=== PATIENT | female | born 1955 | race Asian ===

== ENCOUNTER → 2016-10-24 | Outpatient (CLI) | payer BC ==
[~2016-10-24] MED LIST: ASPIRIN PO; BARACLUDE0.5 MG PO; CALCIUM 500 +1 EAC2 PO; CERTAGEN PO; COREG PO; COZAAR100 MG PO; FISH OIL 1,0001 EAC4; FLAX SEED OIL1000 MG PO; LEVOXYL PO; LISINOPRIL PO; LOSARTAN POTASS50 MG PO; OYSTER CALCIUM500 MG PO; PANTOPRAZOLE SO40 MG PO; PATIENT'S PHARMACY; SYNTHROID PO; VITAMIN D310000 UNIT PO; ZANTAC150 MG PO
--- NOTE | ~2016-10-24 | MR2 ---
[facility] A Service of [facility] RADIOLOGY TEXT RESULTS PATIENT: RACH MATSON LOCATION: [facility] : 53 UNIT #: [id number] AGE: [address]: Rolando Villarreal MD SEX: F ORDER DR: [id number] [place], [place] [address] [id number] O MR#: [id number] Acc #: [id number] NAME: RACH MATSON. : 1955 SEX: F STUDY DATE/TIME: 10/24/2016 9:33 UNIT: [facility] ROOM: STUDY DESCRIPTION: MR Abdomen WWo Cont Attending Physician: Rolando Villarreal M.D. Referring Physician: Rolando Villarreal M.D. Ordering Physician: Rolando Villarreal M.D. Primary Care Physician: Karen Sauceda M.D. MRI CENTER REPORT This report is preliminary unless electronic signature is present. EXAM MRI abdomen with and without contrast MRCP protocol INDICATION Follow up pancreatic cyst. PROCEDURE Multiplanar, multisequence MR imaging of the abdomen prior to and following 11 mL of MultiHance. COMPARISON 10/14/2015. FINDINGS ABDOMEN WITHOUT CONTRAST: Liver has normal morphology. The spleen, adrenal glands, gallbladder and bowel loops have normal signal. 2.2 cm simple cyst posterior upper pole right kidney. Common duct measures 8 mm. This is stable from the previous study. Pancreatic duct nondilated. There is a 7 mm cyst in the pancreatic neck body junction. It is unchanged from the previous study. Pancreas otherwise has normal signal. ABDOMEN WITH CONTRAST: The pancreatic cyst is difficult to see on many of the sequences. It is seen on the 10-minute delays and shows no appreciable internal enhancement. No enhancing pancreatic mass is seen. There are a few small cysts scattered throughout the liver. No abnormal enhancement is seen elsewhere in the abdomen. IMPRESSION [facility] A Service of [facility] RADIOLOGY TEXT RESULTS PATIENT: RACH MATSON LOCATION: [facility] : 53 UNIT #: [id number] AGE: [address]: Rolando Villarreal MD SEX: F ORDER DR: 1. 7 mm cyst in the pancreatic neck body junction is unchanged since 10/14/2015. It is considered a benign finding. No enhancing pancreatic mass. 2. Minimal prominence of the common duct is stable. There is no evidence for choledocholithiasis or an obstructing mass. Dictated by... Venu Velazquez M.D. THIS IS AN ELECTRONICALLY VERIFIED REPORT Venu Velazquez M.D. at 10/26/2016 7:53 AM JOEL/sai TD: 10/25/2016 12:03 JOB #: [id number] MRI CENTER REPORT COPY
[2016-10-24 08:38] LABS: BASOPHIL# 0.1 X10e3 (0-0.3); BASOPHIL% 1.8 % (0-2.5); EOSINOPHIL# 0.1 X10e3 (0-0.7); EOSINOPHIL% 2.9 % (0.0-7.0); HEMATOCRIT 39.5 % (35.0-45.0); HEMOGLOBIN 13.2 gm/dL (12.0-16.0); LYMPHOCYTE# 1.4 X10e3 (1.0-3.5); LYMPHOCYTE% 47.2 % (17.0-45.0); MEAN CELL VOLUME 90.1 FL (83-96); MEAN CORPUSCULAR HEMOGLOBIN 30.1 PG (28-34); MEAN CORPUSCULAR HGB CONC 33.4 g/dL (30-36); MEAN PLATELET VOLUME 8.8 FL (6.5-11.5); MONOCYTE# 0.3 X10e3 (0-1.0); MONOCYTE% 8.5 % (3.0-12.0); NEUTROPHIL# 1.2 X10e3 (1.5-7.1); NEUTROPHIL% 39.6 % (40-75); PLATELET COUNT 136 X10e3 (140-420); RED BLOOD COUNT 4.38 X10e (3.90-5.30); RED CELL DISTRIBUTION WIDTH 13.3 % (11.0-15.5)
[2016-10-24 08:43] LABS: DIFF IND NO
[2016-10-24 09:06] LABS: ALBUMIN SERUM 4.4 g/dL (3.5-5.0); ALKALINE PHOSPHATASE 62 U/L (32-92); ALT (SGPT) 14 U/L (10-40); AST (SGOT) 20 U/L (10-42); BILIRUBIN,TOTAL 0.9 mg/dL (0.2-2.0); BLOOD UREA NITROGEN 17 mg/dL (9-23); BUN/CREATININE RATIO 24.28; CALCIUM SERUM 8.8 mg/dL (8.4-10.2); CARBON DIOXIDE 29 mmol/L (22-31); CHLORIDE 98 mmol/L (100-111); CREATININE SERUM 0.7 mg/dL (0.6-1.4); GLOM FILT RATE Estimated ABOVE60 mL/min (>60); GLUCOSE FASTING 116 mg/dL (70-110); POTASSIUM 3.8 mmol/L (3.5-5.1); PROTEIN TOTAL SERUM 7.3 g/dL (6.0-8.3); SODIUM 135 mmol/L (135-145)
== END | disposition home or self-care (01) ==
LOC: CMRI 08:04
PROVIDERS: Internal Medicine
DX: K86.2 Cyst of pancreas (principal)
CPT/HCPCS: 74183; 80053; 85025; 87522; A9577

== ENCOUNTER → 2016-10-24 | Outpatient (CLI) | payer BC ==
[2016-10-24 09:34] LABS: CHOLESTEROL 211 mg/dL (0-200); HDL CHOLESTEROL 76 mg/dL (35-95); LDL CHOLESTEROL 120 mg/dL (-130); LDL/HDL RATIO 2 RATIO (0-4); TRIGLYCERIDES 74 mg/dL (10-160)
== END | disposition home or self-care (01) ==
LOC: CLAB 08:13
PROVIDERS: Family Medicine
DX: E78.5 Hyperlipidemia, unspecified (principal)
CPT/HCPCS: 36415; 80061

== ENCOUNTER → 2016-11-21 | Outpatient (CLI) | payer BC ==
--- NOTE | ~2016-11-21 | MY11 ---
[facility] A Service of [facility] RADIOLOGY TEXT RESULTS PATIENT: RACH MATSON LOCATION: [facility] : 53 UNIT #: [id number] AGE: [address]: Karen Sauceda MD SEX: F ORDER DR: [id number] [facility] [address] [place], [place] [address] [id number] O MR#: [id number] Acc #: [id number] NAME: RACH MATSON. : 1955 SEX: F STUDY DATE/TIME: 11/21/2016 10:06 UNIT: [facility] ROOM: STUDY DESCRIPTION: MY Mammogram Screening Dig Daniel Attending Physician: Karen Sauceda M.D. Referring Physician: Karen Sauceda M.D. Ordering Physician: Karen Sauceda M.D. Primary Care Physician: Karen Sauceda M.D. MEDICAL IMAGING REPORT This report is preliminary unless electronic signature is present EXAM Digital screening mammogram 11/21/2016. [facility] HISTORY 61-year-old woman no risk elevation. Personal history of thyroid cancer. Annual screening. COMPARISON: Mammograms date to 08/31/2006 with most recent 08/25/2015 FINDINGS Digital imaging of each breast was completed utilizing a two-view examination of each breast in craniocaudal and mediolateral-oblique projections. Review and interpretation of digital mammograms include a second review in conjunction with FDA-approved CAD device. There is a normal parenchymal presentation bilaterally consistent with the patient's age. There are no breast masses imaged and no parenchymal asymmetry is visualized. There are no suspicious microcalcifications and I see no focal architectural disturbance. IMPRESSION Negative screening digital mammogram. One-year followup recommended. Patients over the age of 40 are entered into a reminder system with target due date for the next mammogram. A result letter will also be sent to the patient. BIRADS: 1 Negative Dictated by... Cyril Jennings M.D. [facility] A Service of [facility] RADIOLOGY TEXT RESULTS PATIENT: RACH MATSON LOCATION: [facility] : 54 UNIT #: [id number] AGE: [address]: Karen Sauceda MD SEX: F ORDER DR: THIS IS AN ELECTRONICALLY VERIFIED REPORT Cyril Jennings M.D. at 11/21/2016 1:32 PM Danae TD: 11/21/2016 11:16 JOB #: [id number] MEDICAL IMAGING REPORT Page 1 of 1 COPY
== END | disposition home or self-care (01) ==
LOC: CWCC 09:21
DX: Z12.31 Encounter for screening mammogram for malignant neoplasm of breast (principal)
CPT/HCPCS: G0202

== ENCOUNTER → 2017-02-08 | Day surgery (SDC) | payer BC ==
--- NOTE | ~2017-02-08 | OR ---
Unit #: [id number] #: [id number] Patient: RACH MATSON [id number] [address] [address] [id number] O MR#: [id number] NAME: RACH MATSON. ROOM: Date of Procedure: 02/08/2017 Admission Date: 02/08/2017 Surgeon: Scar Barrera M.D. : 1955 Attending Physician: Scar Barrera M.D. Primary Care Physician: Karen Sauceda M.D. OPERATIVE REPORT PRIMARY CARE PHYSICIAN Karen Sauceda M.D. PREOPERATIVE DIAGNOSES The patient has history of gastroesophageal reflux. In addition, she has family history of colon polyps. PROCEDURES PERFORMED Upper gastrointestinal endoscopy and biopsy as well as colonoscopy with biopsies. POSTOPERATIVE DIAGNOSES For upper endoscopy: 1. Completely normal examination up to third part of duodenum. A biopsy was obtained from the antrum for CLOtest. 2. The patient did not have any evidence of esophageal erosions that were seen last time. For colonoscopy: 1. A single sessile polyp in the proximal ascending colon. This was diminutive and was removed using cold biopsy forceps. 2. Rest of the examination up to cecum and terminal ileum was normal. Specifically, there were no internal hemorrhoids or diverticula. RECOMMENDATIONS 1. Repeat colonoscopy in 5 years. 2. The patient should continue Xanax on a long-term basis. SEDATION USED MAC. DESCRIPTION OF PROCEDURE Following detailed explanation of potential risks and complications of an upper endoscopy and a colonoscopy, namely perforation, bleeding, and complication related to sedation, the patient was brought to GI lab and laid in the left lateral decubitus position. Lubricated tip of the Olympus video upper endoscope was passed through the bite block into the proximal esophagus under direct vision. The entire esophageal mucosa was examined and appeared normal. Z-line was nicely demarcated, there being no esophagitis or hiatus hernia. The scope was then advanced into the gastric cavity and the latter was insufflated. Mucosa of the fundus, body, and antrum was examined and appeared unremarkable. Pylorus was intubated with visualization of the normal duodenal bulb and second and Unit #: [id number] #: [id number] Patient: HUYEN,RACH L third part of the duodenum. Upon withdrawal and retroflexion; incisura, cardia, and greater curve was examined and a biopsy was obtained from the antrum for CLOtest. The scope was then withdrawn in the distal esophagus. The entire esophageal mucosa was examined all the way up to pharynx. No additional findings were noted. The examination table was then turned by 180 degrees and the patient was positioned for a colonoscopy. A digital rectal examination was performed, which was normal. Lubricated tip of the Olympus video colonoscope was inserted through the anus and advanced under direct vision. The scope was advanced past rectosigmoid into descending colon. No diverticula were noted in this area. The scope tip was then navigated all the way up to cecum with visualization of the ileocecal valve and the appendiceal orifice. Preparation was excellent with good visualization and photodocumentation was obtained. Last few inches of the terminal ileum were also visualized after intubation of the ileocecal valve and appeared normal. Successive segments of the colonic mucosa were examined upon withdrawal. Single sessile polyp was noted in the proximal ascending colon. This was diminutive and was removed using cold biopsy forceps. No additional polyps were noted. The patient did not have any diverticula nor any hemorrhoids. The scope was then withdrawn and the patient returned to the recovery area. She tolerated the procedure without any postprocedure complications. Dictated by... Stephanie Brumfield/joey TD: 02/08/2017 10:36 JOB #: [id number] OPERATIVE REPORT Page 1 of 1 X Scar Barrera MD X PROCEDURE OPERATIVE NOTE
== END | disposition home or self-care (01) ==
LOC: COPS 06:42
DX: Z12.11 Encounter for screening for malignant neoplasm of colon (principal); D12.2 Benign neoplasm of ascending colon; K21.9 Gastro-esophageal reflux disease without esophagitis; I10 Essential (primary) hypertension; E89.0 Postprocedural hypothyroidism; Z85.850 Personal history of malignant neoplasm of thyroid; Z87.442 Personal history of urinary calculi; Z83.71 Family history of colonic polyps; Z88.1 Allergy status to other antibiotic agents; Z79.899 Other long term (current) drug therapy; Z98.890 Other specified postprocedural states
CPT/HCPCS: 87077; 88305; J2250

== ENCOUNTER → 2017-03-03 | Outpatient (CLI) | payer BC ==
[2017-03-03 14:39] LABS: THYROID STIMULATING HORMONE 0.2 uIU/ml (0.34-5.60)
[2017-03-03 14:46] LABS: FREE THYROXIN (T4) 1.23 ng/dL (0.58-1.64)
== END | disposition home or self-care (01) ==
LOC: CLAB 13:25
PROVIDERS: Family Medicine
DX: D72.819 Decreased white blood cell count, unspecified (principal)
CPT/HCPCS: 36415; 84439; 84443; 86800